=== PATIENT | female | born 1960 | race Caucasian/White ===

== ENCOUNTER 2017-11-30 18:47 | Emergency (ER) | payer BC, OTHER ==
[2017-11-30] MEDS ORDERED: Lidocaine 1% w/Epinephrine 1:100K 20 ML VIAL ONE (19:48)
[2017-11-30] MEDS ORDERED: Adacel (T-DAP) 0.5 ML VIAL ONE (19:52)
[2017-11-30] MEDS ORDERED: Bacitracin Zinc 1 Packet ONE (20:21)
== END 2017-11-30 20:44 | disposition home or self-care (01) ==
LOC: ERS 18:47
DX: S61.215A Laceration without foreign body of left ring finger without damage to nail, initial encounter (principal); Z23 Encounter for immunization; Z79.899 Other long term (current) drug therapy; W26.0XXA Contact with knife, initial encounter
CPT/HCPCS: 12001; 90471; 90715; J2001

== ENCOUNTER 2017-12-09 08:29 | Outpatient (CLI) | payer OTHER | END 2017-12-09 08:30 | disposition home or self-care (01) | LOC: BICMAMMO 08:29 | PROVIDERS: ATTEND Obstetrics & Gynecology | DX: Z12.31 Encounter for screening mammogram for malignant neoplasm of breast (principal); R92.1 Mammographic calcification found on diagnostic imaging of breast | CPT/HCPCS: 77063; 77067 ==

== ENCOUNTER 2022-06-10 15:21 | Outpatient (CLI) | payer BC | END 2022-06-10 15:22 | disposition home or self-care (01) | LOC: BICMAMMO 15:21 | PROVIDERS: ATTEND Physician Assistant | DX: Z13.820 Encounter for screening for osteoporosis (principal); M85.80 Other specified disorders of bone density and structure, unspecified site | CPT/HCPCS: 77080 ==